=== PATIENT | female | born 1985 | race Caucasian/White ===

== ENCOUNTER 2019-03-12 19:56 | Emergency (ER) | payer MEDICAID ==
[~2019-03-12] VITALS: Ht 162.6 cm; Wt 67.0 kg
[2019-03-12 20:46] VITALS: BP 129/69
== END 2019-03-12 23:10 | disposition left against medical advice (07) ==
LOC: ER 19:56
DX: Z53.21 Procedure and treatment not carried out due to patient leaving prior to being seen by health care provider (principal)

== ENCOUNTER 2019-05-21 15:40 | Emergency (ER) | payer MEDICAID ==
[~2019-05-21] VITALS: Ht 157.5 cm; Wt 70.0 kg
[2019-05-21] MEDS ORDERED: ACETAMINOPHEN 325MG TABLET PO ONE (19:15)
[2019-05-21 19:33] LABS: BASOPHILS % 0.4 % (0.0-2.0); EOSINOPHILS % 4.1 % (0.0-5.0); HEMATOCRIT. 36.8 % (36.0-48.0); HEMOGLOBIN. 12.9 g/dL (12.0-16.0); LYMPHOCYTES % 22.8 % (20.0-50.0); MEAN CORPUSCULAR HEMOGLOBIN 30.4 pg (28.0-32.0); MEAN CORPUSCULAR VOLUME 86.6 fL (81.0-99.0); MEAN PLATELET VOLUME 8.7 fl (7.4-10.4); MONOCYTES % 6.5 % (2.0-8.0); NEUTROPHILS % 66.2 % (40.0-76.0); PLATELET 177 x1000/uL (130-400); RED BLOOD CELL COUNT 4.24 mill/uL (4.2-5.4); RED CELL DISTRIBUTION WIDTH 13.2 % (11.6-14.6)
[2019-05-21 19:35] LABS: CHLORIDE 110 mEq/L (98-107)
[2019-05-22 01:27] VITALS: BP 125/70
== END 2019-05-22 01:15 | disposition home or self-care (01) ==
LOC: ER 15:40
DX: O26.892 Other specified pregnancy related conditions, second trimester (principal); R07.89 Other chest pain; M79.604 Pain in right leg; R79.1 Abnormal coagulation profile; R20.2 Paresthesia of skin; Z3A.26 26 weeks gestation of pregnancy
CPT/HCPCS: 36415; 71045; 71275; 83880; 84484; 85379; 93005; 93971; 99284

== ENCOUNTER 2019-05-21 15:59 | Emergency (ER) | payer MEDICAID ==
[2019-05-21] MEDS ORDERED: IOHEXOL-350 100 ML BOTTLE ONE (23:06)
== END 2019-05-22 12:22 | disposition home or self-care (01) ==
LOC: ER 15:59
DX: O26.893 Other specified pregnancy related conditions, third trimester (principal); R10.9 Unspecified abdominal pain; R07.89 Other chest pain; Z53.21 Procedure and treatment not carried out due to patient leaving prior to being seen by health care provider; Z3A.28 28 weeks gestation of pregnancy
CPT/HCPCS: Q9967; Z7610